=== PATIENT | male | born 1940 | race Asian ===

== ENCOUNTER 2018-04-04 23:28 | Emergency (ER) | payer OTHER, MEDICARE ==
[~2018-04-04] VITALS: Ht 165.1 cm; Wt 69.0 kg
[2018-04-05 02:01] LABS: BASOPHILS % 0.6 % (0.0-2.0); EOSINOPHILS % 1.4 % (0.0-5.0); HEMATOCRIT. 30.5 % (42.0-52.0); HEMOGLOBIN. 10.1 g/dL (14.0-18.0); LYMPHOCYTES % 13.8 % (20.0-50.0); MEAN CORPUSCULAR HEMOGLOBIN 31.5 pg (28.0-32.0); MEAN CORPUSCULAR VOLUME 94.7 fL (80.0-94.0); MEAN PLATELET VOLUME 8.8 fl (7.4-10.4); MONOCYTES % 13.1 % (2.0-8.0); NEUTROPHILS % 71.1 % (40.0-76.0); PLATELET 198 x1000/uL (130-400); RED BLOOD CELL COUNT 3.22 mill/uL (4.7-6.1); RED CELL DISTRIBUTION WIDTH 14.2 % (11.6-14.6)
[2018-04-05 02:08] LABS: CHLORIDE 109 mEq/L (98-107)
[2018-04-05 02:20] LABS: INR 3.8; PROTHROMBIN TIME 37.5 sec (9.1-11.1)
[2018-04-05 03:45] VITALS: BP 133/67
== END 2018-04-05 03:45 | disposition home or self-care (01) ==
LOC: ER 23:28 → CANBEDREQ 04-05 06:04
DX: R06.02 Shortness of breath (principal); I50.9 Heart failure, unspecified; I25.2 Old myocardial infarction; M19.90 Unspecified osteoarthritis, unspecified site; Z95.1 Presence of aortocoronary bypass graft; Z88.0 Allergy status to penicillin
CPT/HCPCS: 36415; 71045; 83880; 84484; 93005; 99284

== ENCOUNTER 2019-02-06 16:40 | Emergency (ER) | payer OTHER ==
[~2019-02-06] VITALS: Ht 167.6 cm; Wt 50.0 kg
[2019-02-06] MEDS ORDERED: ASPIRIN 81MG TABLET PO ONE (17:30)
[2019-02-06 17:59] LABS: BASOPHILS % 0.6 % (0.0-2.0); EOSINOPHILS % 2.4 % (0.0-5.0); HEMATOCRIT. 39.6 % (42.0-52.0); HEMOGLOBIN. 12.8 g/dL (14.0-18.0); LYMPHOCYTES % 12.4 % (20.0-50.0); MEAN CORPUSCULAR HEMOGLOBIN 33.3 pg (28.0-32.0); MEAN CORPUSCULAR VOLUME 103.5 fL (80.0-94.0); MEAN PLATELET VOLUME 15.3 fl (7.4-10.4); NEUTROPHILS % 73.6 % (40.0-76.0); RED BLOOD CELL COUNT 3.83 mill/uL (4.7-6.1); RED CELL DISTRIBUTION WIDTH 22.4 % (11.6-14.6)
[2019-02-06 18:04] LABS: CHLORIDE 103 mEq/L (98-107)
[2019-02-06 18:40] LABS: INR 1.1; PARTIAL THROMBOPLASTIN TIME 31.7 sec (23.4-31.0); PROTHROMBIN TIME 11.7 sec (9.6-11.0)
[2019-02-07 00:40] VITALS: BP 104/78
[2019-02-08 09:11] LABS: PLATELET 36 x1000/uL (130-400)
== END 2019-02-07 00:41 | disposition short-term general hospital (02) ==
LOC: ER 16:40 → CANBEDREQ 02-07 01:05
DX: I50.23 Acute on chronic systolic (congestive) heart failure (principal); I13.2 Hypertensive heart and chronic kidney disease with heart failure and with stage 5 chronic kidney disease, or end stage renal disease; N18.6 End stage renal disease; I50.9 Heart failure, unspecified; M19.90 Unspecified osteoarthritis, unspecified site; I25.10 Atherosclerotic heart disease of native coronary artery without angina pectoris; Z99.2 Dependence on renal dialysis; Z95.1 Presence of aortocoronary bypass graft; Z88.0 Allergy status to penicillin
CPT/HCPCS: 36415; 71045; 83880; 84484; 93005; 99285

== ENCOUNTER 2019-05-15 08:33 | Inpatient (IN) | payer OTHER ==
[~2019-05-15] VITALS: Ht 165.1 cm; Wt 61.2 kg
[2019-05-15] MEDS ORDERED: SODIUM CHLORIDE 0.9% 500 ML IV ONE (10:04)
[2019-05-15 11:07] LABS: BASOPHILS % 0.5 % (0.0-2.0); EOSINOPHILS % 0.5 % (0.0-5.0); HEMATOCRIT. 33.8 % (42.0-52.0); LYMPHOCYTES % 9.2 % (20.0-50.0); MEAN CORPUSCULAR HEMOGLOBIN 37.3 pg (28.0-32.0); MEAN CORPUSCULAR VOLUME 114.6 fL (80.0-94.0); MONOCYTES % 12.1 % (2.0-8.0); NEUTROPHILS % 77.7 % (40.0-76.0); PLATELET 59 x1000/uL (130-400); RED BLOOD CELL COUNT 2.95 mill/uL (4.7-6.1); RED CELL DISTRIBUTION WIDTH 17.9 % (11.6-14.6)
[2019-05-15 11:13] LABS: CHLORIDE 102 mEq/L (98-107)
[2019-05-15] MEDS ORDERED: LEVOFLOXACIN 750MG PREMIX 150 ML IV ONE (11:30)
[2019-05-15 12:14] LABS: PLATELET ESTIMATE MARKEDLY DECREASED
[2019-05-15] MEDS ORDERED: LEVOFLOXACIN 500MG PREMIX 100 ML IV SCH (15:00)
[2019-05-15] MEDS ORDERED: ACETAMINOPHEN 325MG TABLET PO PRN (15:00)
[2019-05-15] MEDS ORDERED: ONDANSETRON HCL 4MG/2ML INJ IV PRN (15:00)
[2019-05-15] MEDS ORDERED: SODIUM CHLORIDE 0.9% 100 ML IV ONE (15:45)
[2019-05-15] MEDS ORDERED: HEPARIN 5000 UNITS/ML VIAL SUBCUT SCH (21:00)
[2019-05-15 21:45] VITALS: BP 90/50
[2019-05-16] VITALS (7 sets, daily range): BP systolic 88–104; BP diastolic 43–60
[2019-05-16] MEDS ORDERED: FAMO-135 PO (01:04)
[2019-05-16] MEDS ORDERED: ALLO100T PO (01:04)
[2019-05-16] MEDS ORDERED: ATOR20TA65 PO (01:04)
[2019-05-16 07:39] LABS: BASOPHILS % 0.3 % (0.0-2.0); EOSINOPHILS % 0.6 % (0.0-5.0); HEMATOCRIT. 33.4 % (42.0-52.0); LYMPHOCYTES % 11.2 % (20.0-50.0); MEAN CORPUSCULAR HEMOGLOBIN 37.4 pg (28.0-32.0); MEAN PLATELET VOLUME 11.9 fl (7.4-10.4); MONOCYTES % 9.5 % (2.0-8.0); NEUTROPHILS % 78.4 % (40.0-76.0); PLATELET 56 x1000/uL (130-400); RED BLOOD CELL COUNT 2.93 mill/uL (4.7-6.1); RED CELL DISTRIBUTION WIDTH 17.7 % (11.6-14.6)
[2019-05-16 08:49] LABS: CHLORIDE 103 mEq/L (98-107)
[2019-05-16] MEDS ORDERED: LEVOFLOXACIN 250MG PREMIX 50 ML IV SCH (14:00)
[2019-05-16] MEDS ORDERED: CARV6.2548 MT (14:13)
[2019-05-16] MEDS ORDERED: BENZ200C52 PO (14:13)
[2019-05-16] MEDS ORDERED: FURO40TA5 PO (14:13)
[2019-05-16] MEDS ORDERED: ACYC200C PO (14:13)
[2019-05-16] MEDS ORDERED: WARF2.5T47 PO (16:49)
[2019-05-16] MEDS ORDERED: WARF5TAB76 PO (16:49)
[2019-05-16] MEDS ORDERED: WARF2.5T47 MT (16:49)
== END 2019-05-16 20:55 | disposition short-term general hospital (02) | DRG 314 ==
LOC: ER 08:33 → EDBEDREQ 13:10 → 7WST 13:40 → EDBEDREQ 13:42 → ENRESERV 20:45
PROVIDERS: ADMIT Internal Medicine; ATTEND Internal Medicine
DX: I95.9 Hypotension, unspecified (principal); N18.6 End stage renal disease; J18.9 Pneumonia, unspecified organism; I13.2 Hypertensive heart and chronic kidney disease with heart failure and with stage 5 chronic kidney disease, or end stage renal disease; C90.00 Multiple myeloma not having achieved remission; E87.1 Hypo-osmolality and hyponatremia; I42.9 Cardiomyopathy, unspecified; D69.6 Thrombocytopenia, unspecified; E11.22 Type 2 diabetes mellitus with diabetic chronic kidney disease; E78.5 Hyperlipidemia, unspecified; I25.10 Atherosclerotic heart disease of native coronary artery without angina pectoris; I48.91 Unspecified atrial fibrillation; I50.9 Heart failure, unspecified; Z79.899 Other long term (current) drug therapy; Z95.1 Presence of aortocoronary bypass graft; Z95.810 Presence of automatic (implantable) cardiac defibrillator; Z99.2 Dependence on renal dialysis; Z92.21 Personal history of antineoplastic chemotherapy; Z88.0 Allergy status to penicillin
CPT/HCPCS: 36415; 71045; 80053; 82962; 83605; 83735; 83880; 84484; 85025; 93005; 93306; 93970; 96361; 96374; 99285; A6261; J1956; J7030